=== PATIENT | male | born 1940 | race Caucasian/White ===

== ENCOUNTER → 2016-12-13 | Outpatient (CLI) | payer MEDICARE, BC ==
[~2016-12-13] MED LIST: AMLODIPINE-ATO1 EAC1 PO; ASPIRIN81 M2 PO; ASPIRIN81 MG PO; B-121000 MC1 PO; CADUET 2.5 MG/11 TAB; CADUET 5 MG/201 TAB PO; DIAZEPAM10 MG PO; ELIQUIS5 MG PO; FERROUS SULFATE PO; FOLIC ACID1 MG PO; GLUCOVANCE 5/501 TA2; GLYBURIDE-METFO1 TA4 PO; HYDROCHLOROTHIA25 MG PO; LEVOTHYROXINE75 MC1 PO; LIPITOR20 MG PO; LISINOPRIL10 MG PO; METFORMIN HCL1000 M1 PO; METOPROLOL TART25 MG PO; MICRONASE5 M2 PO; NORVASC PO; ONGLYZA5 MG PO; RAMIPRIL2.5 MG PO; REGRANEX15 GM TOP; SEROQUEL PO; ST JOSEPH ASPIR81 M1 PO; SYNTHROID PO; VANCOMYCIN HCL1 GM IV; VANTIN200 MG PO; VITAMIN D50000 UNIT PO; ZOSYN3.375 G1 IV
== END | disposition home or self-care (01) ==
LOC: CSSDAY 13:36
DX: D64.9 Anemia, unspecified (principal); D50.9 Iron deficiency anemia, unspecified
CPT/HCPCS: 36430; 86850; 86900; 86901; 86923; J1940; P9016